=== PATIENT | female | born 1990 | race Caucasian/White ===

== ENCOUNTER 2019-05-08 10:44 | Emergency (ER) | payer SELFPAY | END 2019-05-08 11:17 | disposition home or self-care (01) | LOC: ERS 10:44 | DX: J30.9 Allergic rhinitis, unspecified (principal) | CPT/HCPCS: 99282 ==

== ENCOUNTER 2025-10-13 12:23 | Emergency (ER) | payer OTHER ==
[2025-10-13] MEDS ORDERED: Dexamethasone 10 MG/ML VIAL ONE (14:19)
[2025-10-13] MEDS ORDERED: diphenhydrAMINE 50 MG/ML VIAL ONE (14:19)
[2025-10-13] MEDS ORDERED: Metoclopramide HCl 10 MG (2 mL) VIAL ONE (14:20)
== END 2025-10-13 15:32 | disposition home or self-care (01) ==
LOC: ERS 12:23
DX: R51.9 Headache, unspecified (principal); F17.210 Nicotine dependence, cigarettes, uncomplicated; V89.2XXA Person injured in unspecified motor-vehicle accident, traffic, initial encounter
CPT/HCPCS: 96374; 96375; J1100; J1200; J2765